=== PATIENT | female | born 1960 | race Caucasian/White ===

== ENCOUNTER 2019-03-18 13:08 | Emergency (ER) | payer OTHER, MEDICAID, SELFPAY ==
[2019-03-18 13:12] VITALS: BP 151/91; PULSE 85; RESP 18; TEMP 36.2; O2SAT 99; BMI 33.5
--- NOTE | 2019-03-18 13:17 | DI.RAD.S_ITS ---
PROCEDURE: XR ANKLE RT MIN 3V INDICATIONS: Previous injury that still bothersome. TECHNIQUE: 3 views of the ankle were acquired. COMPARISON: None. FINDINGS: Bones: No fractures or dislocations. Ankle mortise is normally aligned. No suspicious bony lesions. Soft tissues: No tibiotalar joint effusion. Achilles tendon appears normal. IMPRESSION: Normal for age, source of current pain after trauma symptoms is not seen. Dictated by: Zachariah Meraz M.D. on 03/18/2019 at 13:39 Approved by: Zachariah Meraz M.D. on 03/18/2019 at 13:40
--- NOTE | 2019-03-18 14:08 | ED.LOWEXIN ---
HPI - Extremity Injury (Lower) <KARENA Arnold - Last Filed: 03/18/19 16:12> General Chief Complaint: Extremity Injury, Lower Stated Complaint: right ankle pain with swelling Time Seen by Provider: 03/18/19 13:16 Source: patient Mode of arrival: ambulatory Limitations: no limitations History of Present Illness HPI Narrative: The patient is a 58-year-old female nonsmoker who denies pertinent medical history presents with a chief complaint of right ankle pain. She states that she rolled her ankle while getting out of a truck a month ago. She states she is still having swelling and pain across both malleolus. She was not evaluated after the incident. She has been using some ibuprofen. She states she has full range of motion, presents wearing sandals. Denies any previous injury to her right ankle. Denies any foot pain. Pain is worsened by persistent ambulation and weight-bearing. Related Data Allergies Allergy/AdvReac Type Severity Reaction Status Date / Time INGREDIENT: NO KNOWN - NO Allergy Unknown Uncoded 11/05/17 12:56 KNOWN DRUG ALLERGY Review of Systems <KARENA Arnold - Last Filed: 03/18/19 16:12> Review of Systems GENERAL: Denies chills, fatigue, malaise, fever, sweats. HEENT: Denies sinus pain, ear pain, sore throat, difficulty swallowing, dizziness. RESPIRATORY: Denies dyspnea, cough, wheezing, hemoptysis, sputum. CARDIOVASCULAR: Denies chest pain, palpitations, orthopnea, edema, GASTROINTESTINAL: Denies nausea, vomiting, abdominal pain, diarrhea, constipation, melena. : Denies dysuria, frequency, incontinence, hematuria, urinary retention. MUSCULOSKELETAL: See HPI SKIN: Denies rash, skin lesions, or other NEUROLOGIC: Denies weakness, headache, numbness, change in speech, confusion, seizures, incoordination. PSYCHIATRIC: No concerning psychosocial issues. 12 point review of systems is negative except for those stated above PFS <KARENA Arnold - Last Filed: 03/18/19 16:12> Medical History (Updated 03/18/19 @ 16:11 by KARENA Arnold) Family history non-contributory (Acute) Medical history non-contributory (Acute) Social History Smoking Status: Never smoker Social History Smoking Status: Never smoker Exam <KARENA Arnold - Last Filed: 03/18/19 16:12> Narrative Exam Narrative: GENERAL: This is a well-nourished, well-developed patient, in no acute distress HEAD: Atraumatic. Normocephalic. No temporal or scalp tenderness. EYES: Pupils equal round and reactive. Extraocular motions intact. No scleral icterus. No injection or drainage. ENT: Nose without bleeding, purulent drainage or septal hematoma. Throat without erythema, tonsillar hypertrophy or exudate. Uvula midline. Airway patent. NECK: Trachea midline. No JVD or lymphadenopathy. Supple, nontender, no meningeal signs. CARDIOVASCULAR: Regular rate and rhythm RESPIRATORY: No cough. No increased respiratory effort. No accessory muscle use. EXTREMITIES: Pain to palpation medial and lateral malleoli right ankle. Patient is able to flex, extend right ankle. Able to pronate and supinate right ankle. Positive pedal pulses right foot. BACK: Nontender without deformity or crepitance. No flank tenderness. NEURO: AOx3. SKIN: No erythema ecchymosis laceration or abrasion noted right ankle. Initial Vital Signs Initial Vital Signs: Vital Signs Temperature 97.2 F L 03/18/19 13:12 Pulse Rate 85 03/18/19 13:12 Respiratory Rate 18 03/18/19 13:12 Blood Pressure 151/91 H 03/18/19 13:12 Pulse Oximetry 99 03/18/19 13:12 <Lizzy Fairchild DO - Last Filed: 03/19/19 07:24> Initial Vital Signs Initial Vital Signs: Vital Signs Temperature 97.2 F L 03/18/19 13:12 Pulse Rate 85 03/18/19 13:12 Respiratory Rate 18 03/18/19 13:12 Blood Pressure 151/91 H 03/18/19 13:12 Pulse Oximetry 99 03/18/19 13:12 Course <KARENA Arnold - Last Filed: 03/18/19 16:12> Orders Ordered: ED Orders 03/18/19 13:17 XR ankle RT min 3V Stat Vital Signs - 8 hr 08/22/19 13:12 Temperature 97.2 F L Pulse Rate 85 Respiratory Rate 18 Blood Pressure 151/91 H Pulse Oximetry 99 <Lizzy Fairchild DO - Last Filed: 03/19/19 07:24> Orders Ordered: ED Orders 03/18/19 13:17 XR ankle RT min 3V Stat Vital Signs - 8 hr 03/18/19 13:12 Temperature 97.2 F L Pulse Rate 85 Respiratory Rate 18 Blood Pressure 151/91 H Pulse Oximetry 99 MDM - Extremity Injury (Lower) <KARENA Arnold - Last Filed: 03/18/19 16:12> Imaging Data Ankle x-ray: Radiologist's impression: [address] [address] XRay Report Signed Patient: Gudelia Carlos [facility]#: [id number] : 9Acct:[id number] Age/Sex: 58 / FDate of Service: 03/18/19 Loc: ED Accession Number: [id number] Procedure: XR ankle RT min 3V Ordering Provider: Lizzy Mendenhall PROCEDURE: XR ANKLE RT MIN 3V INDICATIONS: Previous injury that still bothersome. TECHNIQUE: 3 views of the ankle were acquired. COMPARISON: None. FINDINGS: Bones: No fractures or dislocations. Ankle mortise is normally aligned. No suspicious bony lesions. Soft tissues: No tibiotalar joint effusion. Achilles tendon appears normal. IMPRESSION: Normal for age, source of current pain after trauma symptoms is not seen. Dictated by: Zachariah Meraz M.D. on 03/18/2019 at 13:39 Approved by: Zachariah Meraz M.D. on 03/18/2019 at 13:40 [facility] Narrative Medical decision making narrative: The patient is a 58-year-old female who presents with a chief complaint of ankle pain x1 month. She is able to weightbear, neurovascularly intact, has a negative x-ray. I discussed at length rest ice compression elevation as well as [id number] pain medications as needed and able. Discussed at length follow up with PCP, she may need further imaging and or physical therapy etc. No questions or concerns upon discharge. Discussed coming back to the ER for any acute concerns such as chest pain, shortness of breath etc Discharge Plan Departure Patient Disposition: Home Clinical Impression: Ankle sprain and strain Discharge Date/Time: 03/18/19 14:03 Interventions: ED Discharge Assessment Last Done: 03/18/19 14:03 Instructions: DI for Ankle Sprain, How To Perform RICE (Rest, Ice, Compress, Elevate), DI for Ankle Pain Activity Restrictions/Additional Instructions: Your x-rays came back with no fracture today. Please follow Up with primary care provider. In the meantime please use rest ice compression elevation as well as [id number] pain medications as needed and able. Please come back to the emergency department for any acute concerns such as concern of heart attack or stroke, concern of decreased circulation to her toes or foot. Referrals: Cass Jolly MD [Non-Staff] - <Lizzy Fairchild DO - Last Filed: 03/19/19 07:24> Cosign ED Attending Cosgiuliaature Attestation: I was immediately available in the department for consultation. This documentation has been reviewed and I agree with assessment and plan. Supervised by Lizzy Fairchild DO
--- NOTE | 2019-03-18 16:12 | ED_ITS ---
HPI - Extremity Injury (Lower) <KARENA Arnold - Last Filed: 03/18/19 16:12> General Chief Complaint: Extremity Injury, Lower Stated Complaint: right ankle pain with swelling Time Seen by Provider: 03/18/19 13:16 Source: patient Mode of arrival: ambulatory Limitations: no limitations History of Present Illness HPI Narrative: The patient is a 58-year-old female nonsmoker who denies p ertinent medical history presents with a chief complaint of right ankle pain. She states that she rolled her ankle while getting out of a truck a month ago. She states she is still having swelling and pain across both malleolus. She was not evaluated after the incident. She has been using some ibuprofen. She states she has full range of motion, presents wearing sandals. Denies any previous injury to her right ankle. Denies any foot pain. Pain is worsened by persistent ambulation and weight-bearing. Related Data Allergies Allergy/AdvReac Type Severity Reaction Status Date / Time INGREDIENT: NO KNOWN - NO Allergy Unknown Uncoded 11/05/17 12:56 KNOWN DRUG ALLERGY Review of Systems <KARENA Arnold - Last Filed: 03/18/19 16:12> Review of Systems GENERAL: Denies chills, fatigue, malaise, fever, sweats. HEENT: Denies sinus pain, ear pain, sore throat, difficulty swallowing, dizziness. RESPIRATORY: Denies dyspnea, cough, wheezing, hemoptysis, sputum. CARDIOVASCULAR: Denies chest pain, palpitations, orthopnea, edema, GASTROINTESTINAL: Denies nausea, vomiting, abdominal pain, diarrhea, constipation, melena. : Denies dysuria, frequency, incontinence, hematuria, urinary retention. MUSCULOSKELETAL: See HPI SKIN: Denies rash, skin lesions, or other NEUROLOGIC: Denies weakness, headache, numbness, change in speech, confusion, seizures, incoordination. PSYCHIATRIC: No concerning psychosocial issues. 12 point review of systems is negative except for those stated above PFSH <KARENA Arnold - Last Filed: 03/18/19 16:12> Medical History (Updated 03/18/19 @ 16:11 by KARENA Arnold) Family history non-contributory (Acute) Medical history non-contributory (Acute) Social History Smoking Status: Never smoker Social History Smoking Status: Never smoker Exam <KARENA Arnold - Last Filed: 03/18/19 16:12> Narrative Exam Narrative: GENERAL: This is a well-nourished, well-developed patient, in no acute distress HEAD: Atraumatic. Normocephalic. No temporal or scalp tenderness. EYES: Pupils equal round and reactive. Extraocular motions intact. No scleral icterus. No injection or drainage. ENT: Nose without bleeding, purulent drainage or septal hematoma. Throat without erythema, tonsillar hypertrophy or exudate. Uvula midline. Airway patent. NECK: Trachea midline. No JVD or lymphadenopathy. Supple, nontender, no meningeal signs. CARDIOVASCULAR: Regular rate and rhythm RESPIRATORY: No cough. No increased respiratory effort. No accessory muscle use. EXTREMITIES: Pain to palpation medial and lateral malleoli right ankle. Patient is able to flex, extend right ankle. Able to pronate and supinate right ankle. Positive pedal pulses right foot. BACK: Nontender without deformity or crepitance. No flank tenderness. NEURO: AOx3. SKIN: No erythema ecchymosis laceration or abrasion noted right ankle. Initial Vital Signs Initial Vital Signs: Vital Signs Temperature 97.2 F L 03/18/19 13:12 Pulse Rate 85 03/18/19 13:12 Respiratory Rate 18 03/18/19 13:12 Blood Pressure 151/91 H 03/18/19 13:12 Pulse Oximetry 99 03/18/19 13:12 <Lizzy Fairchild DO - Last Filed: 03/19/19 07:24> Initial Vital Signs Initial Vital Signs: Vital Signs Temperature 97.2 F L 03/18/19 13:12 Pulse Rate 85 03/18/19 13:12 Respiratory Rate 18 03/18/19 13:12 Blood Pressure 151/91 H 03/18/19 13:12 Pulse Oximetry 99 03/18/19 13:12 Course <KARENA Arnold - Last Filed: 03/18/19 16:12> Orders Ordered: ED Orders 03/18/19 13:17 XR ankle RT min 3V Stat Vital Signs - 8 hr 03/18/19 13:12 Temperature 97.2 F L Pulse Rate 85 Respiratory Rate 18 Blood Pressure 151/91 H Pulse Oximetry 99 <Lizzy Fairchild DO - Last Filed: 03/19/19 07:24> Orders Ordered: ED Orders 03/18/19 13:17 XR ankle RT min 3V Stat Vital Signs - 8 hr 03/18/19 13:12 Temperature 97.2 F L Pulse Rate 85 Respiratory Rate 18 Blood Pressure 151/91 H Pulse Oximetry 99 MDM - Extremity Injury (Lower) <KARENA Arnold - Last Filed: 03/18/19 16:12> Imaging Data Ankle x-ray: Radiologist's impression: [address] [address] XRay Report Signed Patient: Gudelia Carlos [facility]#: [id number] : 9Acct:[id number] Age/Sex: 58 / FDate of Service: 03/18/19 Loc: ED Accession Number: [id number] Procedure: XR ankle RT min 3V Ordering Provider: Lizzy Mendnehall PROCEDURE: XR ANKLE RT MIN 3V INDICATIONS: Previous injury that still bothersome. TECHNIQUE: 3 views of the ankle were acquired. COMPARISON: None. FINDINGS: Bones: No fractures or dislocations. Ankle mortise is normally aligned. No suspicious bony lesions. Soft tissues: No tibiotalar joint effusion. Achilles tendon appears normal. IMPRESSION: Normal for age, source of current pain after trauma symptoms is not seen. Dictated by: Zachariah Meraz M.D. on 03/18/2019 at 13:39 Approved by: Zachariah Meraz M.D. on 03/18/2019 at 13:40 [facility] Narrative Medical decision making narrative: The patient is a 58-year-old female who presents with a chief complaint of ankle pain x1 month. She is able to weightbear, neurovascularly intact, has a negative x-ray. I discussed at length rest ice compression elevation as well as [id number] pain medications as needed and able. Discussed at length follow up with PCP, she may need further imaging and or physical therapy etc. No questions or concerns upon discharge. Discussed coming back to the ER for any acute concerns such as chest pain, shortness of breath etc Discharge Plan Departure Patient Disposition: Home Clinical Impression: Ankle sprain and strain Discharge Date/Time: 03/18/19 14:03 Interventions: ED Discharge Assessment Last Done: 03/18/19 14:03 Instructions: DI for Ankle Sprain, How To Perform RICE (Rest, Ice, Compress, Elevate), DI for Ankle Pain Activity Restrictions/Additional Instructions: Your x-rays came back with no fracture today. Please follow Up with primary care provider. In the meantime please use rest ice compression elevation as well as [id number] pain medications as needed and able. Please come back to the emergency department for any acute concerns such as concern of heart attack or stroke, concern of decreased circulation to her toes or foot. Referrals: aCss Jolly MD [Non-Staff] - <Lizzy Fairchild DO - Last Filed: 03/19/19 07:24> Cosign ED Attending Cosignature Attestation: I was immediately available in the department for consultation. This documentation has been reviewed and I agree with assessment and plan. Supervised by Lizzy Fairchild DO
== END 2019-03-18 14:03 | disposition home or self-care (01) ==
PROVIDERS: Emergency Provider Nurse Practitioner Family
DX: M25.571 Pain in right ankle and joints of right foot (principal)
CPT/HCPCS: 73610; 99282; 99283

== ENCOUNTER → 2019-07-19 15:29 | Outpatient (CLI) | payer OTHER, MEDICAID, SELFPAY ==
--- NOTE | 2019-07-19 15:31 | DI.RAD.S_ITS ---
PROCEDURE: XR LUMBAR SPINE MIN 4V INDICATIONS: Acute lower back pain TECHNIQUE: 3 views of the lumbar spine acquired. COMPARISON: None. FINDINGS: Bones: 5 nonrib-bearing vertebrae are present. There is mild straightening of the normal lumbar lordosis without significant anterolisthesis or retrolisthesis of the lower thoracic and lumbar spine. No vertebral body compression fractures. No suspicious bony lesions. There are mild degenerative changes of the bilateral hip joints. There are minimal multilevel anterior endplate osteophytes. There is minimal multilevel facet arthropathy from L3-S1. Soft tissues: Overlying bowel gas pattern is nonobstructive but demonstrates a moderate stool burden throughout the colon. IMPRESSION: Minimal degenerative changes of the lower lumbar spine. Dictated by: Aaron Madera M.D. on 07/19/2019 at 18:36 Approved by: Aaron Madera M.D. on 07/19/2019 at 18:41
== END ==
PROVIDERS: PCP Family Medicine; Visit Provider Family Medicine
DX: S39.012A Strain of muscle, fascia and tendon of lower back, initial encounter (principal); X58.XXXA Exposure to other specified factors, initial encounter
CPT/HCPCS: 72110

== ENCOUNTER → 2020-01-17 08:45 | Outpatient (CLI) | payer OTHER, MEDICAID, SELFPAY ==
--- NOTE | 2020-01-17 08:47 | DI.RAD.S_ITS ---
PROCEDURE: XR KNEE LT 3V INDICATIONS: Progressive weight-bearing left knee pain TECHNIQUE: 3 views of the knee were acquired. COMPARISON: None. FINDINGS: Bones: No fractures or dislocations. No suspicious bony lesions. Scattered degenerative subchondral sclerosis and spurring. Soft tissues: No joint effusion. No suspicious soft tissue calcifications. IMPRESSION: Mild joint degeneration. If the patient's pain or other symptoms persist, consider further evaluation with MRI Dictated by: Jose Campos M.D. on 01/17/2020 at 9:23 Approved by: Jose Campos M.D. on 01/17/2020 at 9:29
== END ==
PROVIDERS: PCP Family Medicine; Referring Provider Family Medicine; Visit Provider Family Medicine
DX: M25.562 Pain in left knee (principal); M17.12 Unilateral primary osteoarthritis, left knee
CPT/HCPCS: 73562

== ENCOUNTER → 2020-02-08 06:50 | Outpatient (CLI) | payer OTHER, MEDICAID, SELFPAY ==
--- NOTE | 2020-02-08 06:53 | DI.MRI.S_ITS ---
PROCEDURE: MR KNEE LT WO CON INDICATIONS: progressively worsening left knee pain TECHNIQUE: Noncontrast sagittal PD fast spin echo and T2 fast spin echo with fat saturation, sagittal 3-D FLASH with fat saturation; coronal T1 spin echo and PD fast spin echo with fat saturation, and axial PD fast spin echo with fat saturation through the knee. COMPARISON: [facility], CR, XR KNEE LT 3V, 01/17/2020, 8:44. FINDINGS: Image quality: Excellent. Menisci: There is complex tear involving the body and posterior horn of the medial meniscus. The lateral meniscus demonstrates normal morphology and internal signal. The meniscal root ligaments appear intact. Cruciate ligaments: The anterior and posterior cruciate ligaments appear intact. Medial structures: The medial collateral ligament appears intact. The semimembranosus tendon insertions and meniscocapsular junction appear intact. Visualized portions of the pes anserinus tendons appear normal. No abnormal bursal fluid. Lateral structures: The lateral collateral ligament, long and short heads of the biceps femoris tendon appear intact. The popliteus tendon appears normal. Iliotibial band appears normal. Anterior structures: The quadriceps and patellar tendons appear intact. Patellar alignment is normal. No femoral trochlear dysplasia or ventral trochlear prominence. No edema in the infrapatellar fat pad. Bones and cartilage: No bone marrow contusions or fractures. Mild tricompartmental cartilage thinning and fibrillation. Joint space: There is moderate knee joint effusion. No Burgos's cyst. Normal appearing synovial plicae are incidentally noted. IMPRESSION: 1. Complex tear of the body and posterior horn of the medial meniscus. 2. Mild tricompartmental cartilage thinning and fibrillation. 3. Moderate knee joint effusion. Dictated by: Karl Marie M.D. on 02/08/2020 at 9:41 Approved by: Karl Marie M.D. on 02/08/2020 at 17:45
[2020-02-08 08:17] LABS: Add Manual Diff / Slide Review NO; Basophils Absolute Auto 0 /uL (0-100); Basophils Percent Auto 0.8 % (0-2); Eosinophils Absolute Auto 100 /uL (0-450); Eosinophils Percent Auto 2.3 % (2-4); Hematocrit 40.1 % (36-46); Hemoglobin 13.4 g/dL (12.0-16.0); Lymphocytes Absolute Auto 2400 /uL (1100-4500); Lymphocytes Percent Auto 39.3 % (25-40); Mean Corpuscular HGB Conc 33.4 % (30-36); Mean Corpuscular Hemoglobin 29.5 PG (26-34); Mean Corpuscular Volume 88.3 fL (80-100); Monocytes Absolute Auto 400 /uL (0-900); Monocytes Percent Auto 7.1 % (3-14); Neutrophils Absolute Auto 3000 /uL (1500-7000); Neutrophils Percent Auto 50.5 % (50-75); Platelet Count 289 X10^3/uL (150-400); Red Blood Cell Count 4.53 X10^6/uL (4.0-5.2); Red Cell Distribution Width 13.3 % (11.6-14.8)
[2020-02-08 08:33] LABS: Hemoglobin A1C% w Est Avg Glu 6.1 % (4.0-6.0)
[2020-02-08 08:34] LABS: Alanine Aminotransferase 18 IU/L (<35); Aspartate Aminotransferase 24 IU/L (14-36); BUN Creatinine Ratio 22.1 (6-22); Blood Urea Nitrogen 17 mg/dL (7-17); Calcium 9.7 mg/dL (8.4-10.2); Carbon Dioxide 26 mmol/L (22-32); Chloride 105 mmol/L (98-107); Cholesterol 206 mg/dL (140-199); Estimated Glomerular Filt Rate > 60.0 mL/min (>60); Glucose 112 mg/dL (80-110); HDL Cholesterol 49 mg/dL (40-60); HEMOLYSIS < 15 (0-50); LDL Cholesterol Calculated 129 mg/dL (<100); Potassium 4.1 mmol/L (3.4-5.1); Sodium 139 mmol/L (137-145); Triglycerides 138 mg/dL (35-150)
[2020-02-08 09:04] LABS: Thyroid Stimulating Hormone 1.46 uIU/mL (0.47-4.68)
== END ==
PROVIDERS: PCP Family Medicine; Referring Provider Family Medicine; Visit Provider Family Medicine
DX: M25.562 Pain in left knee (principal); S83.232A Complex tear of medial meniscus, current injury, left knee, initial encounter; M25.462 Effusion, left knee
CPT/HCPCS: 36415; 73721; 80048; 80061; 83036; 84443; 84450; 84460; 85025